=== PATIENT | female | born 1960 | race Caucasian/White ===

== ENCOUNTER 2016-10-20 13:03 | Emergency (ER) | payer MEDICAID ==
[~2016-10-20] VITALS: Ht 157.5 cm; Wt 90.0 kg
[2016-10-20 13:11] VITALS: BP 122/88
== END 2016-10-20 13:59 | disposition home or self-care (01) ==
LOC: ED 13:53
DX: L03.113 Cellulitis of right upper limb (principal); J44.9 Chronic obstructive pulmonary disease, unspecified; Z87.891 Personal history of nicotine dependence
CPT/HCPCS: 99283

== ENCOUNTER 2018-01-26 22:38 | Emergency (ER) | payer MEDICAID ==
[~2018-01-26] VITALS: Ht 165.1 cm; Wt 102.2 kg
[2018-01-26 22:53] VITALS: BP 125/85
== END 2018-01-27 00:40 | disposition home or self-care (01) ==
LOC: ED 23:59
DX: G89.11 Acute pain due to trauma (principal); M25.561 Pain in right knee; W18.09XA Striking against other object with subsequent fall, initial encounter; Y93.89 Activity, other specified; Y92.59 Other trade areas as the place of occurrence of the external cause; Y99.8 Other external cause status
CPT/HCPCS: 99284

== ENCOUNTER 2018-03-25 18:27 | Emergency (ER) | payer MEDICAID ==
[~2018-03-25] VITALS: Ht 165.1 cm; Wt 90.0 kg
[2018-03-25 18:31] VITALS: BP 145/88
== END 2018-03-25 20:32 | disposition home or self-care (01) ==
LOC: ED 20:22
DX: S80.02XA Contusion of left knee, initial encounter (principal); S80.01XA Contusion of right knee, initial encounter; J45.909 Unspecified asthma, uncomplicated; J44.9 Chronic obstructive pulmonary disease, unspecified; W18.49XA Other slipping, tripping and stumbling without falling, initial encounter; Y93.89 Activity, other specified; Y92.89 Other specified places as the place of occurrence of the external cause; Y99.8 Other external cause status
CPT/HCPCS: 99283

== ENCOUNTER 2018-04-01 19:05 | Emergency (ER) | payer MEDICAID ==
[~2018-04-01] VITALS: Ht 160 cm; Wt 90.0 kg
[2018-04-01 19:13] VITALS: BP 130/82
[2018-04-01 19:48] LABS: BASOPHILS # (AUTO) 0.06 x10^3/uL (0-0.1); BASOPHILS % (AUTO) 1 % (0-1); EOSINOPHILS # (AUTO) 0.55 x10^3/uL (0-0.4); EOSINOPHILS % (AUTO) 8 % (1-7); LYMPHOCYTES # (AUTO) 3.17 x10^3/uL (1-3.4); LYMPHOCYTES % (AUTO) 46 % (22-44); MD NO; MEAN CORPUSCULAR HGB CONC 32.6 g/dL (32.4-35.8); MEAN PLATELET VOLUME 7.7 fL (7.4-10.4); MONOCYTES # (AUTO) 0.54 x10^3/uL (0.2-0.8); MONOCYTES % (AUTO) 8 % (2-9); NEUTROPHILS # (AUTO) 2.56 x10^3/uL (1.8-6.8); NEUTROPHILS % (AUTO) 37 % (42-75); PLATELET COUNT 451 x10^3/uL (130-400); RED BLOOD COUNT 4.41 x10^6/uL (3.82-5.3); RED CELL DISTRIBUTION WIDTH 14.5 % (9.6-15.2)
[2018-04-01 20:01] LABS: ALANINE AMINOTRANSFERASE 28 U/L (12-78); ALBUMIN 3.2 g/dL (3.4-5.0); ANION GAP 7 mmol/L (5-15); CALCIUM 8.6 mg/dL (8.5-10.1); CHLORIDE 106 mmol/L (98-107); CREATININE 0.82 mg/dL (0.55-1.02)
[2018-04-01 20:05] LABS: ALKALINE PHOSPHATASE 124 U/L (45-117); BILIRUBIN,TOTAL 0.2 mg/dL (0.2-1.0); TOTAL PROTEIN 8.3 g/dL (6.4-8.2); TROPONIN I < 0.015 ng/mL (0.000-0.045)
== END 2018-04-01 21:44 | disposition home or self-care (01) ==
LOC: ED 20:58
DX: R07.89 Other chest pain (principal); R00.2 Palpitations; J44.9 Chronic obstructive pulmonary disease, unspecified; J45.909 Unspecified asthma, uncomplicated; Z87.01 Personal history of pneumonia (recurrent); Z87.891 Personal history of nicotine dependence; Z90.81 Acquired absence of spleen
CPT/HCPCS: 36415; 71045; 80053; 83880; 84484; 85025; 93005; 99284

== ENCOUNTER 2018-12-15 01:17 | Emergency (ER) | payer MEDICAID ==
[~2018-12-15] VITALS: Ht 165.1 cm; Wt 104.3 kg
[2018-12-15 01:24] VITALS: BP 123/83
== END 2018-12-15 02:09 | disposition home or self-care (01) ==
LOC: ED 01:58
DX: M25.561 Pain in right knee (principal); M25.562 Pain in left knee; J44.9 Chronic obstructive pulmonary disease, unspecified; Z87.891 Personal history of nicotine dependence; Z90.81 Acquired absence of spleen; W01.198A Fall on same level from slipping, tripping and stumbling with subsequent striking against other object, initial encounter; Y93.89 Activity, other specified; Y92.89 Other specified places as the place of occurrence of the external cause; Y99.8 Other external cause status
CPT/HCPCS: 99283

== ENCOUNTER 2019-04-10 12:15 | Emergency (ER) | payer MEDICAID ==
[~2019-04-10] VITALS: Ht 160 cm; Wt 115.0 kg
[2019-04-10 12:20] VITALS: BP 127/73
[2019-04-10] MEDS ORDERED: ALBUTEROL/IPRATROPIUM 2.5MG/0.5MG, 3 ML NPPB ONE (13:00)
[2019-04-10] MEDS ORDERED: ALBUTEROL/IPRATROPIUM 2.5MG/0.5MG, 3 ML ONE ×2 (13:15→13:16)
== END 2019-04-10 13:39 | disposition home or self-care (01) ==
LOC: ED 13:30
DX: J20.8 Acute bronchitis due to other specified organisms (principal); J00 Acute nasopharyngitis [common cold]; J44.9 Chronic obstructive pulmonary disease, unspecified
CPT/HCPCS: 71046; 94640; 99283; J7512; J7620

== ENCOUNTER 2019-07-03 01:14 | Emergency (ER) | payer MEDICAID ==
[~2019-07-03] VITALS: Ht 167.6 cm; Wt 106.8 kg
[2019-07-03] MEDS ORDERED: ONDANSETRON ODT 4 MG PO ONE (02:00)
[2019-07-03] MEDS ORDERED: ACETAMINOPHEN 500 MG TABLET PO ONE (02:00)
[2019-07-03] MEDS ORDERED: ONDANSETRON ODT 4 MG ONE (02:02)
[2019-07-03] MEDS ORDERED: ACETAMINOPHEN 500 MG TABLET ONE (02:03)
[2019-07-03 02:09] LABS: BASOPHILS # (AUTO) 0.05 x10^3/uL (0-0.1); BASOPHILS % (AUTO) 1 % (0-1); EOSINOPHILS # (AUTO) 0.84 x10^3/uL (0-0.4); EOSINOPHILS % (AUTO) 8 % (1-7); LYMPHOCYTES # (AUTO) 2.65 x10^3/uL (1-3.4); LYMPHOCYTES % (AUTO) 24 % (22-44); MD NO; MEAN CORPUSCULAR HEMOGLOBIN 27.2 pg (27.0-34.8); MEAN CORPUSCULAR HGB CONC 31.9 g/dL (32.4-35.8); MEAN CORPUSCULAR VOLUME 85.3 fL (80-100); MONOCYTES # (AUTO) 0.79 x10^3/uL (0.2-0.8); MONOCYTES % (AUTO) 7 % (2-9); NEUTROPHILS # (AUTO) 6.62 x10^3/uL (1.8-6.8); NEUTROPHILS % (AUTO) 61 % (42-75); PLATELET COUNT 535 x10^3/uL (130-400); RED BLOOD COUNT 4.26 x10^6/uL (3.82-5.3); RED CELL DISTRIBUTION WIDTH 15.8 % (9.6-15.2)
[2019-07-03 02:15] VITALS: BP 135/76
--- NOTE | 2019-07-03 02:16 | NUR ---
Note juvencio in EDM - 07/03/19 at 0251 by ANGELITA BREAK RN: PT SITTING UP ON GURNEY, MONITORS IN PLACE, SIDERAILS UP X2, DENIES NEEDS AT THSI TIME, CALL LIGHT WITHIN REACH. AWAITING LAB AND XRAY RESULTS
--- NOTE | 2019-07-03 02:17 | NUR ---
BREAK RN: PT SITTING UP ON GURNEY, MONITORS IN PLACE, SIDERAILS UP X2, DENIES NEEDS AT THIS TIME, CALL LIGHT WITHIN REACH. AWAITING LAB AND XRAY RESULTS
[2019-07-03 02:19] LABS: ALANINE AMINOTRANSFERASE 21 U/L (12-78); ALBUMIN 2.9 g/dL (3.4-5.0); ANION GAP 7 mmol/L (5-15); CHLORIDE 103 mmol/L (98-107); CREATININE 0.71 mg/dL (0.55-1.02)
[2019-07-03 02:21] LABS: ALKALINE PHOSPHATASE 133 U/L (45-117); BILIRUBIN,TOTAL 0.2 mg/dL (0.2-1.0); TOTAL PROTEIN 8.9 g/dL (6.4-8.2)
--- NOTE | 2019-07-03 02:32 | NUR ---
MEDICAL EDUCATION SPECIALIST AT PT'S BEDSIDE
--- NOTE | 2019-07-03 02:43 | NUR ---
PT SITTING UP ON GURNEY, NOTED SPO2-76% R/A, APPLIED O2 AT 3L N/V-SPO2-94%, DENIES FURTHER NEEDS, AWAITING ULTRASOUND RESULT
[2019-07-03] MEDS ORDERED: ALBUTEROL/IPRATROPIUM 2.5MG/0.5MG, 3 ML NPPB ONE (03:00)
[2019-07-03] MEDS ORDERED: ALBUTEROL SULFATE 2.5 MG/3 ML ONE (03:09)
--- NOTE | 2019-07-03 03:20 | NUR ---
PT REQUESTING HER RESCUE INHALER. LUNGS SOUNDS WHEEZY. NOTIFIED ORDERS RECEIVED.
== END 2019-07-03 04:07 | disposition home or self-care (01) ==
LOC: ED 03:33
DX: K59.00 Constipation, unspecified (principal); R10.11 Right upper quadrant pain; J44.9 Chronic obstructive pulmonary disease, unspecified; Z87.891 Personal history of nicotine dependence
CPT/HCPCS: 36415; 74018; 76700; 80053; 83690; 85025; 94640; 99285; Q0162

== ENCOUNTER 2019-07-11 19:07 | Emergency (ER) | payer MEDICAID ==
[~2019-07-11] VITALS: Ht 160 cm; Wt 110.0 kg
[2019-07-11 19:14] VITALS: BP 144/77
[2019-07-11] MEDS ORDERED: LIDOCAINE-MPF 1%, 5ML ONE (19:46)
[2019-07-11] MEDS ORDERED: LIDOCAINE 1%, 10ML INFIL ONE (20:00)
== END 2019-07-11 20:46 | disposition home or self-care (01) ==
LOC: ED 20:15
DX: L02.211 Cutaneous abscess of abdominal wall (principal); L03.311 Cellulitis of abdominal wall; J44.9 Chronic obstructive pulmonary disease, unspecified; M19.90 Unspecified osteoarthritis, unspecified site; Z87.891 Personal history of nicotine dependence; Z90.81 Acquired absence of spleen
CPT/HCPCS: 10060; 99283; 99284

== ENCOUNTER 2019-07-13 22:17 | Emergency (ER) | payer MEDICAID ==
[~2019-07-13] VITALS: Ht 160 cm; Wt 108.4 kg
[2019-07-13 22:21] VITALS: BP 135/61
== END 2019-07-13 23:29 | disposition home or self-care (01) ==
LOC: ED 23:15
DX: L02.211 Cutaneous abscess of abdominal wall (principal)
CPT/HCPCS: 99282

== ENCOUNTER 2019-10-07 21:03 | Emergency (ER) | payer MEDICAID ==
[~2019-10-07] VITALS: Ht 165.1 cm; Wt 90.9 kg
--- NOTE | 2019-10-07 21:05 | NUR ---
PT BIB [facility] FROM [facility] FOR BILAT LEG SWELLING AND WEEPING TO RLE X 1 WEEK. PT ALSO C/O SOME SOB, REPORTS SHE HAS HX OF ASTHMA. VS PER EMS: HR 100, 150/90, 93% ON RA. NO 12-LEAD DONE BY EMS. PT DENIES ANY CARDIAC HX. ARRIVES TO ED A&OX4. ERP AT BS IMMEDIATELY.
--- NOTE | 2019-10-07 21:15 | NUR ---
REPORTED TO CORKY LEONARD.
[2019-10-07] MEDS ORDERED: IBUP-1222 PO (22:07)
[2019-10-07] MEDS ORDERED: TIOT18CA INH (22:07)
[2019-10-07] MEDS ORDERED: MELA1TAB22 PO (22:07)
[2019-10-07] MEDS ORDERED: DIPH25TA24 PO (22:07)
[2019-10-07] MEDS ORDERED: SPIR25TA5 PO (22:07)
[2019-10-07] MEDS ORDERED: OXYB5TAB10 PO (22:07)
[2019-10-07] MEDS ORDERED: CETI10TA26 PO (22:07)
[2019-10-07] MEDS ORDERED: FLUT12HF2 INH (22:07)
[2019-10-07] MEDS ORDERED: SULF1TAB24 PO (22:07)
[2019-10-07] MEDS ORDERED: MONT10TA11 PO (22:07)
[2019-10-07] MEDS ORDERED: ARIP20TA5 PO (22:07)
[2019-10-07] MEDS ORDERED: GUAI-110 PO (22:07)
[2019-10-07] MEDS ORDERED: FAMO-79 PO (22:07)
[2019-10-07 22:12] VITALS: BP 133/75
--- NOTE | 2019-10-07 22:12 | NUR ---
PT TO US AT THIS TIME.
[2019-10-07 22:40] LABS: BASOPHILS # (AUTO) 0.08 x10^3/uL (0-0.1); BASOPHILS % (AUTO) 1 % (0-1); EOSINOPHILS # (AUTO) 0.54 x10^3/uL (0-0.4); EOSINOPHILS % (AUTO) 8 % (1-7); LYMPHOCYTES # (AUTO) 2.62 x10^3/uL (1-3.4); LYMPHOCYTES % (AUTO) 38 % (22-44); MD NO; MEAN CORPUSCULAR HEMOGLOBIN 26.9 pg (27.0-34.8); MEAN CORPUSCULAR HGB CONC 32.3 g/dL (32.4-35.8); MEAN CORPUSCULAR VOLUME 83.3 fL (80-100); MEAN PLATELET VOLUME 7.6 fL (7.4-10.4); MONOCYTES # (AUTO) 0.57 x10^3/uL (0.2-0.8); MONOCYTES % (AUTO) 8 % (2-9); NEUTROPHILS # (AUTO) 3.16 x10^3/uL (1.8-6.8); NEUTROPHILS % (AUTO) 45 % (42-75); PLATELET COUNT 513 x10^3/uL (130-400); RED BLOOD COUNT 3.35 x10^6/uL (3.82-5.3); RED CELL DISTRIBUTION WIDTH 18.8 % (9.6-15.2)
[2019-10-07 22:49] LABS: ALANINE AMINOTRANSFERASE 13 U/L (12-78); ALBUMIN 2.7 g/dL (3.4-5.0); ANION GAP 5 mmol/L (5-15); CALCIUM 8.4 mg/dL (8.5-10.1); CHLORIDE 106 mmol/L (98-107); CREATININE 0.72 mg/dL (0.55-1.02)
[2019-10-07 22:53] LABS: ALKALINE PHOSPHATASE 90 U/L (45-117); BILIRUBIN,TOTAL 0.3 mg/dL (0.2-1.0); TROPONIN I < 0.015 ng/mL (0.000-0.045)
--- NOTE | 2019-10-08 00:21 | NUR ---
MULTIPLE ATTEMPTS AT CALLING [facility] FOR [facility]. CONTACTED PT FRIEND ROX, NO ANSWER. CONTACTED [employer] [facility] AND NO ONE IS AVAILABLE TO COME GET PT UNTIL THE AM. SPOKE WITH RADHA CALLOWAY REGARDING SITUATION.
== END 2019-10-08 00:57 | disposition home or self-care (01) ==
LOC: ED 23:16
DX: M71.21 Synovial cyst of popliteal space [Baker], right knee (principal); D64.9 Anemia, unspecified; R60.0 Localized edema; R94.31 Abnormal electrocardiogram [ECG] [EKG]; J44.9 Chronic obstructive pulmonary disease, unspecified; M19.90 Unspecified osteoarthritis, unspecified site; Z87.891 Personal history of nicotine dependence
CPT/HCPCS: 36415; 71045; 80053; 83880; 84484; 85025; 93005; 93970; 99285

== ENCOUNTER 2019-12-27 12:55 | Emergency (ER) | payer MEDICAID ==
[~2019-12-27] VITALS: Ht 160 cm; Wt 97.1 kg
[~2019-12-27 12:55] MED LIST: ARIP20TA5 PO; CETI10TA76 PO; DIPH25TA24 PO; FAMO-79 PO; FLUT12HF2 INH; GUAI-110 PO; IBUP-1222 PO; MELA1TAB22 PO; MONT10TA11 PO; OXYB5TAB10 PO; SPIR25TA5 PO; SULF1TAB24 PO; TIOT18CA INH
[2019-12-27 13:06] VITALS: BP 122/75
--- NOTE | 2019-12-27 14:32 | NUR ---
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
== END 2019-12-27 17:01 | disposition home or self-care (01) ==
LOC: ED 16:45
DX: R10.31 Right lower quadrant pain (principal); J44.9 Chronic obstructive pulmonary disease, unspecified
CPT/HCPCS: 99281